=== PATIENT | female | born 1945 | race African-American/Black ===

== ENCOUNTER 2021-09-03 16:21 | Emergency (ER) | payer MEDICARE, SELFPAY ==
[2021-09-03] VITALS (36 sets, daily range): BP systolic 108–223; BP diastolic 46–100; PULSE 64–90; RESP 12–29; TEMP 36.6–37.1; O2SAT 98–100
--- NOTE | ~2021-09-03 | XR_ITS ---
EXAMINATION: XR chest 1V portable Exam Date/Time: 09/03/2021 17:25 CDT HISTORY: HTN, lightheaded, NAUSEA Comparison: None available. RESULT: Lines, tubes, and devices: None. Lungs and pleura: Senescent change, otherwise clear. Cardiomediastinal silhouette: Aortic ectasia, otherwise normal cardiomediastinal silhouette. Other: No acute osseous or upper abdominal finding. IMPRESSION: No acute cardiopulmonary process. Reviewed, dictated and finalized at location K.
--- NOTE | ~2021-09-03 | CT_ITS ---
EXAMINATION: CT brain wo con DATE: 09/03/2021 17:42 INDICATION: elevated BP, headaches, lightheaded . TECHNIQUE: Computed tomography (CT) of the head was performed without intravenous contrast. The mA wa s adjusted according to patient size. Iterative reconstruction technique was employed. The dose-lengt h product was 605.33 mGy-cm. COMPARISON: None FINDINGS: No acute intracranial hemorrhage or extra-axial fluid collection. No hydrocephalus, mass, or herniation. No acute ischemic infarct. Unremarkable dural venous sinus attenuation. No acute osseous abnormality. The aerated spaces are clear. Moderate atrophy and chronic white matter change. Old right basal ganglia lacunar infarct. Atheroscle rotic intracranial calcifications. IMPRESSION: No acute intracranial process. Reviewed, dictated and finalized at location K.
--- NOTE | 2021-09-03 16:41 | ECG_ITS ---
Measurements Intervals [place] Rate: 54 P: 54 VA: 160 QRS: -38 QRSD: 106 T: 35 QT: 376 QTc: 358 Interpretive Statements SINUS BRADYCARDIA LEFT AXIS DEVIATION INCOMPLETE RIGHT BUNDLE BRANCH BLOCK MINIMAL Q WAVES- HIGH LATERAL LEADS CANNOT RULE OUT SEPTAL INFARCT, AGE INDETERMINATE BORDERLINE T WAVE ABNORMALITY- INFERIOR LEADS BASELINE ARTIFACT- II, III ABNORMAL ECG Electronically Signed On 09-03-2021 17:25:04 CDT by Sj Mansfield D.O.
--- NOTE | 2021-09-03 17:15 | ED.WEAKNESS ---
HPI - Weakness General Chief complaint: Weakness Stated complaint: feel sick to my stomach, high blood pressure, weak Time Seen by Provider: 09/03/21 17:04 History of Present Illness HPI Narrative: Patient is a 76 year old female with a history of HTN here for evaluation of elevated blood pressure reads at home. Patient states she took her blood pressure because she was feeling off at home and noted it to be in the 200s systolic. Additionally notes intermittent lightheadedness over the past three days that she most notices with exertion, in addition to a pulsatile, intermittent, right-sided headache that feels new for her. Denies syncope, room-spinning sensation, shortness of breath, chest pain, visual changes. She does take medications for HTN but is unsure what they are called. Related Data Allergies Allergy/AdvReac Type Severity Reaction Status Date / Time Sulfa (Sulfonamide Allergy Anaphylaxis Verified 09/03/21 17:58 Antibiotics) Review of Systems Review of Systems: Gen.: Reports lightheadedness. Denies fevers or chills Eyes: Denies eye pain or visual change ENT: Denies congestion Respiratory: Denies shortness of breath or cough CV: Denies chest pain or palpitations GI: Denies abdominal pain nausea, emesis or diarrhea denies burning, urgency, frequency or hematuria Musculoskeletal: Denies back pain or muscle pain Neuro: Reports headache. Denies numbness, tingling, weakness or focal weakness Skin: Denies rash Except as documented, all other systems reviewed and negative Exam Narrative: APPEARANCE: Well appearing, no pain in distress, well-nourished. Head: normocephalic and atraumatic. EYES: PERRLA/EOMI, conjunctivae clear. Bilateral cataracts. NOSE: No nasal drainage EARS: External ear normal in appearance THROAT: Oropharynx is clear. Mucous membranes are moist. NECK: Supple. No adenopathy, no masses. RESPIRATORY: Airway patent, respirations nonlabored. Clear to auscultation bilaterally, no rales, rhonchi, wheezing. CARDIOVASCULAR: 2+ radial pulses bilaterally. Regular rate and rhythm without murmurs, rubs, or gallops. ABDOMINAL: Normoactive bowel sounds. Soft, nontender, nondistended. No rebound tenderness or guarding. MUSCULOSKELETAL: Extremities are warm and well-perfused. Moves all extremities well. No edema. NEURO: Cranial nerves II through XII intact. Normal speech. No focal neurologic deficits. SKIN: Skin is warm and dry. No rashes. PSYCHIATRIC: Normal affect/mood. Course Vital Signs Vital signs: Vital Signs Temperature 97.8 F 09/03/21 16:24 Pulse Rate 64 09/03/21 16:24 Respiratory Rate 18 09/03/21 16:24 Blood Pressure 223/94 H 09/03/21 16:24 Pulse Oximetry 100 09/03/21 16:24 Oxygen Delivery Room Air 09/03/21 16:24 Temperature 98.7 F 09/03/21 22:22 Pulse Rate 84 09/03/21 22:01 Respiratory Rate 17 09/03/21 22:01 Blood Pressure 119/86 09/03/21 22:01 Pulse Oximetry 100 09/03/21 22:01 Oxygen Delivery Room Air 09/03/21 16:24 MDM - Weakness MDM Narrative Medical decision making narrative: 76-year-old female here for evaluation of lightheadedness and elevated blood pressures at home. Patient noted to have a systolic blood pressure 223/94 upon arrival, vital signs otherwise normal. She has no cranial nerve abnormalities on exam, her heart and lungs were clear to auscultation, there was no signs of fluid overload on exam. Work-up in the ED showed no evidence of endorgan damage, her chest x-ray was with no acute disease, her creatinine is 0.7, her head CT was negative for acute process, and her EKG was nonischemic. Troponin x2 negative, patient not having chest pain. Patient's blood pressure normalized after hydralazine and Nitropaste. She did develop a headache after the Nitropaste, this resolved after it was removed and with Tylenol. Patient was observed in the emergency department for about 5 hours, her blood pressure remained normal and she was asympt
[2021-09-03] MEDS: NITROGLYCERIN OINTMENT 1 INCH DOSE TRANSDERM (17:58)
[2021-09-03 18:03] LABS: Basophils Percent Auto 0.3 % (0.2-1.2); Eosinophils Absolute Auto 0.1 K/mm3 (0-0.3); Eosinophils Percent Auto 0.7 % (0-4.4); Hemoglobin 13.5 g/dL (12.0-15.0); Immature Granulocyte Absolute 0.02 K/mm3 (0.00-0.031); Immature Granulocyte Percent A 0.3 % (0-0.5); Lymphocytes Percent Auto 15.7 % (18.3-44.2); Mean Corpuscular HGB Conc 31.4 g/dl (32-36); Mean Corpuscular Hemoglobin 32.2 pg (26-34); Mean Corpuscular Volume 102.6 fl (80-100); Mean Platelet Volume 10.5 fl (7.4-10.4); Monocytes Absolute Auto 0.7 K/mm3 (0.1-0.6); Monocytes Percent Auto 9.6 % (2.6-8.5); Neutrophils Absolute Auto 5.1 K/mm3 (1.3-6.7); Neutrophils Percent Auto 73.4 % (45.5-73.1); Platelet Count Result 230 k/mm3 (150-375); Red Blood Count 4.19 M/mm3 (4.2-5.4)
[2021-09-03] MEDS: hydrALAZINE HCL 20 MG/ML VIAL IV PUSH (18:04)
[2021-09-03 18:11] LABS: Appearance Urine Clear (Clear); Bilirubin Urine Negative (Negative); Color Urine Yellow (Yellow); Glucose Urine UA Negative (Negative); Ketones Urine Negative (Negative); Leukocyte Esterase Ur Trace LEU/UL (Negative); Nitrate Urine Negative (Negative); Protein Urine Negative (Negative); Urobilinogen Urine 0.2 mg/dL (<2.0); pH Urine 7.5 (5.0-9.0)
[2021-09-03 18:12] LABS: Alanine Aminotransferase 19 U/L (6-35); Albumin Level 4.4 g/dL (3.5-5.1); Alkaline Phosphatase 111 U/L (38-126); Anion Gap 4 mmol/L (8-16); Aspartate Amino Transferase 25 U/L (14-36); Bilirubin,Total 0.8 mg/dL (0.2-1.3); Blood Urea Nitrogen 11 mg/dL (7-17); Carbon Dioxide 33 mmol/L (22-30); Chloride 102 mmol/L (98-107); Estimated CRCL calculation 65 ml/min; Estimated Glomerular Filt Rate > 60; Glucose 123 mg/dL (65-110); Potassium 3.4 mmol/L (3.4-5.0); Sodium 139 mmol/L (137-145)
[2021-09-03 18:13] LABS: Lipase 49 U/L (23-300); Partial Thromboplastin Time 28.1 SECONDS (22.3-36.8); Prothrombin Time 12.7 Seconds (11.1-14.7)
[2021-09-03 18:15] LABS: Add Urine Microscopic? YES; Blood Urine Trace (Negative)
[2021-09-03 18:25] LABS: NT Pro B Type Natriuretic Pept 129 pg/mL (5-100); Troponin I < 0.012 ng/mL (0.000-0.034)
[2021-09-03] MEDS: ACETAMINOPHEN 325 MG TABLET 650 MG PO (20:23)
--- NOTE | 2021-09-03 20:28 | PC.NURSE ---
nitro patched removed per ERP due pt c/o VERGARA 11/20.
[2021-09-03 21:52] LABS: Troponin I 0.015 ng/mL (0.000-0.034)
== END 2021-09-03 22:23 | disposition home or self-care (01) ==
PROVIDERS: Physician Assistant; Emergency Provider Emergency Medicine
DX: I10 Essential (primary) hypertension (principal); R00.1 Bradycardia, unspecified; I45.10 Unspecified right bundle-branch block; R94.31 Abnormal electrocardiogram [ECG] [EKG]
CPT/HCPCS: 36415; 70450; 71045; 80053; 81001; 83690; 83880; 84484; 85025; 85610; 85730; 93005; 96374; 99284; A9270; J0360